=== PATIENT | male | born 1960 | race Native Hawaiian/Other Pacific Islander ===

== ENCOUNTER 2016-03-24 08:44 | Day surgery (SDC) | payer OTHER ==
[2016-03-22 15:47] VITALS: BMI 34.9
[~2016-03-24 08:44] MED LIST: LACTATED RINGERS 1,000 ML IV SCH
[2016-03-24 09:45] VITALS: RESP 16; TEMP 97.8
[2016-03-24] MEDS ORDERED: LIDOCAINE 1% 20 ML VIAL (10MG/ML) FOR IV START INTRADERMA ONE (09:46)
[2016-03-24] MEDS ORDERED: LACTATED RINGERS 1,000 ML IV SCH (10:00)
[2016-03-24] MEDS ORDERED: MIDAZOLAM 2 MG/2 ML VIAL ONE (10:12)
[2016-03-24] MEDS ORDERED: BUPIVACAINE (PF) 0.5% 30 ML VIAL ONE (10:12)
[2016-03-24] MEDS ORDERED: TRIAMCINOLONE ACETONIDE 40 MG/ML 1 ML VIAL ONE (10:12)
--- NOTE | 2016-03-24 10:45 | P.PCN ---
Date of Procedure: 03/24/16 Preoperative Diagnosis: Lumbar spondylosis without myelopathy Postoperative Diagnosis: Lumbar spondylosis without myelopathy Procedure(s) Performed: Right lumbar medial branch radio frequency ablation under fluoroscopic guidance for the medial branches L2, L3, L4, and dorsal ramus of L5 Anesthesia: local Surgeon: Cyndi Oakley Pathology: none sent Condition: stable Disposition: PACU Description of Procedure: The patient was seen in preoperative holding area consent was obtained through an trust evaluation supervisor over the phone. The patient then was brought into the procedure room and placed in prone position. Skin was prepped with ChloraPrep and draped in a sterile manner. Lidocaine 1% was used to numb the skin up at the target points that were chosen as follows: For the L5-S1 level which corresponds to the dorsal ramus of L5 the target point was at the superior medial aspect of the sacral alar on the right side of the spine on the AP view of fluoroscopy. For the L2-L3 and L4 medial branches the target points were the connection between the transverse process and the superior articular process of L 3, L4, and L5 vertebra on the right oblique view of fluoroscopy. AP, oblique, and lateral views of fluoroscopy were obtained to verify needle tip position. I used 18-gauge 150 mm in length with 10 mm curved active tip radiofrequency ablation needles for this procedure. I placed the active tips as parallel as possible to the medial branches tracks by going in a superior medial direction. Motor stimulation showed only local twitches of these needles with no radiation of twitching to the right lower extremity beneath the knee level. I then prepared solution of 3 MLS Marcaine 0.5% +40 mg of Kenalog and 1 mL of the solution was given in each needle after that I did 2 sessions of frequency ablation for 90 seconds at 80C in between these 2 sessions the needles were withdrawn by 1 or 2 mm and the bevels were turned 100. The patient tolerated procedure well. The patient has normal dorsiflexion and plantarflexion muscle strength in the right lower extremity after the procedure. And normal knee flexion muscle strength.
[2016-03-24] MEDS ORDERED: IV FLUID CONTINUATION 1,000 ML IV ONE (10:49)
--- NOTE | 2016-03-24 10:51 | FL ---
EXAMINATION TYPE: FL guided pain mgmt statistic DATE OF EXAM: 03/24/2016 10:46 AM HISTORY: Flouroscopy time 37 seconds of fluoroscopy provided. IMPRESSION: 1. Fluoroscopy time.
[2016-03-24 11:10] VITALS: BP 127/80; PULSE 75
== END 2016-03-24 11:23 | disposition home or self-care (01) ==
LOC: ORPAIN 08:44
PROVIDERS: ATTEND Anesthesiology
DX: M47.816 Spondylosis without myelopathy or radiculopathy, lumbar region (principal)
CPT/HCPCS: 64635; 64636; J2250; J3301

== ENCOUNTER → 2016-04-13 | Outpatient (CLI) | payer OTHER ==
[2016-04-13 13:00] VITALS: BP 134/88; PULSE 74; RESP 16; TEMP 97.8
--- NOTE | 2016-04-13 13:29 | P.PN ---
Progress Note - Text Patient returns for followup for chronic back pain with mild radiation to lower extremities. Patient recently underwent bilateral lumbar RFA which has provided relief for only two weeks' for the patient's back pain, and he continues to complain of right flank pain with some left flank pain as well. Patient continues on tramadol medications from PCP for pain with good relief. Patient denies adverse drug effects from medications. Today, pt denies new- onset weakness, bowel/bladder incontinence, or any other signs or symptoms of cauda equina syndrome. There are no signs of acute intoxication, and no indications of medication diversion or overuse. In addition to above, 13-point review of systems is also negative for chest pain , shortness of breath, changes in vision, changes in hearing, new onset weakness , abdominal pain, diarrhea, extreme fatigue, malaise, fever, skin changes, homicidal or suicidal ideation, or bowel or bladder incontinence. Vital Signs: Reviewed in EMR Gen: WDWN, AAOx3, NAD HEENT: NCAT, EOMI, hearing grossly normal Pulm: resp unlabored Abd: soft, NT, ND Neck: supple, trachea midline ROM in flexion lumbar spine: reduced ROM in extension lumbar spine: reduced Lumbar paravertebral tenderness: + Facet loading: ++ bilateral SI joint tenderness: + R side Straight leg raise: + SLR 25 degrees Neuro: CN II-XII grossly intact, muscle strength lower extremities PRESERVED Imaging: Reviewed in EMR Assessment: 1. lumbar DDD 2. lumbar spinal stenosis 3. lumbar spondylosis without myelopathy Plan: 1. Explanation: Opioid and psychological risk scores were reviewed. Diagnoses , prognoses, and multiple treatment options including but not limited to physical therapy, interventional therapies, adjuvant medical therapies, narcotic medication therapies, and surgery were discussed with the patient and all questions were answered to the patient's satisfaction. 2. Opioid agreement: Patient has previously signed narcotic agreement, and was orally counseled via business services sales representative in [place] to not overuse, abuse, divert, or cell medications, and to take them as prescribed by only 1 healthcare provider. The patient was also counseled to store opioid medications in a safe and preferably locked location. Patient was also counseled against driving or operating heavy equipment while using narcotic medications and also to not use alcohol or any illicit or recreational drugs. The patient verbalized understanding that lack of compliance with any of the above and likely result in failure to renew narcotic prescriptions, possible discharge from the clinic, and possible legal ramifications thereafter if indicated. 3. Counseling: The patient was counseled extensively on BODY MASS INDEX, EXERCISE. Specifically, the patient was instructed regarding the importance of weight control and exercise in the context of both chronic pain and overall health. 4. Procedures: none for now 5. Consultations: None 6. Investigations: None 7. Medications: [place] #30, tramadol #60, and lidocaine ointment to put on painful areas 8. Disposition: f/u for re-eval 8 weeks; if still little relief, consider prescribing muscle relaxant at next visit PQRS measures: 1-Patient's medications are documented in the chart. 2-Tobacco use is negative 3-Patient has not had a pneumococcal vaccine. 4-Advanced care planning discussed, patient unable to give. 5-Opioid contract signed with the patient. 6-Pain positive, follow-up visit or procedure scheduled 7-Patient's blood pressure measured and documented, and patient will follow up with the primary care due to hypertension. 8-Patient's weight was measured, and body mass index ABOVE the normal limits, and counseling was done. Patient instructed to follow up with PCP. 9-Patient WAS NOT identified as an unhealthy alcohol user.
== END | disposition home or self-care (01) ==
LOC: PNWHC3 12:23
PROVIDERS: ATTEND Anesthesiology
DX: M51.36 Other intervertebral disc degeneration, lumbar region (principal); M48.06 Spinal stenosis, lumbar region; M47.816 Spondylosis without myelopathy or radiculopathy, lumbar region; Z79.899 Other long term (current) drug therapy
CPT/HCPCS: 99211

== ENCOUNTER → 2016-06-08 | Outpatient (CLI) | payer OTHER ==
[2016-06-08 14:45] VITALS: BP 128/81; PULSE 103; RESP 18; TEMP 98.4
--- NOTE | 2016-06-08 14:57 | P.PN ---
Progress Note - Text Patient returns for followup for chronic back pain with mild radiation to lower extremities. Patient recently underwent bilateral lumbar RFA near the end of 2015 which has provided relief on the right side but not as much on the left side. Patient continues on tramadol and an occasional [place] pill/day for pain with good relief. Patient denies adverse drug effects from medications. Today , pt denies new-onset weakness, bowel/bladder incontinence, or any other signs or symptoms of cauda equina syndrome. There are no signs of acute intoxication, and no indications of medication diversion or overuse. In addition to above, 13-point review of systems is also negative for chest pain , shortness of breath, changes in vision, changes in hearing, new onset weakness , abdominal pain, diarrhea, extreme fatigue, malaise, fever, skin changes, homicidal or suicidal ideation, or bowel or bladder incontinence. Vital Signs: Reviewed in EMR Gen: WDWN, AAOx3, NAD HEENT: NCAT, EOMI, hearing grossly normal Pulm: resp unlabored Abd: soft, NT, ND Neck: supple, trachea midline ROM in flexion lumbar spine: reduced ROM in extension lumbar spine: reduced Lumbar paravertebral tenderness: + Facet loading: ++ bilateral SI joint tenderness: + R side Straight leg raise: neg Neuro: CN II-XII grossly intact, muscle strength lower extremities PRESERVED Imaging: Reviewed in EMR Assessment: 1. lumbar DDD 2. lumbar spinal stenosis 3. lumbar spondylosis without myelopathy Plan: 1. Explanation: Opioid and psychological risk scores were reviewed. Diagnoses , prognoses, and multiple treatment options including but not limited to physical therapy, interventional therapies, adjuvant medical therapies, narcotic medication therapies, and surgery were discussed with the patient and all questions were answered to the patient's satisfaction. 2. Opioid agreement: Patient has previously signed narcotic agreement, and was orally counseled via needle polisher in [place] to not overuse, abuse, divert, or cell medications, and to take them as prescribed by only 1 healthcare provider. The patient was also counseled to store opioid medications in a safe and preferably locked location. Patient was also counseled against driving or operating heavy equipment while using narcotic medications and also to not use alcohol or any illicit or recreational drugs. The patient verbalized understanding that lack of compliance with any of the above and likely result in failure to renew narcotic prescriptions, possible discharge from the clinic, and possible legal ramifications thereafter if indicated. 3. Counseling: The patient was counseled extensively on BODY MASS INDEX, EXERCISE. Specifically, the patient was instructed regarding the importance of weight control and exercise in the context of both chronic pain and overall health. 4. Procedures: repeat left lumbar RFA in July 19. Consultations: None 6. Investigations: None 7. Medications: [place] #30, tramadol #60, and lidocaine ointment to put on painful areas (patient needed auth for the ointment and did not get it at last visit) 8. Disposition: f/u for procedure in 8 weeks PQRS measures: 1-Patient's medications are documented in the chart. 2-Tobacco use is negative 3-Patient has not had a pneumococcal vaccine. 4-Advanced care planning discussed, patient unable to give. 5-Opioid contract signed with the patient. 6-Pain positive, follow-up visit or procedure scheduled 7-Patient's blood pressure measured and documented, and patient will follow up with the primary care due to hypertension. 8-Patient's weight was measured, and body mass index ABOVE the normal limits, and counseling was done. Patient instructed to follow up with PCP. 9-Patient WAS NOT identified as an unhealthy alcohol user.
== END | disposition home or self-care (01) ==
LOC: PNWHC3 14:22
PROVIDERS: ATTEND Anesthesiology
DX: M48.06 Spinal stenosis, lumbar region (principal); M51.36 Other intervertebral disc degeneration, lumbar region; M47.816 Spondylosis without myelopathy or radiculopathy, lumbar region; G89.29 Other chronic pain; Z79.899 Other long term (current) drug therapy
CPT/HCPCS: 99211

== ENCOUNTER 2016-08-26 07:55 | Day surgery (SDC) | payer OTHER ==
[2016-08-24 18:33] VITALS: BMI 29.5
[2016-08-26 08:18] VITALS: TEMP 97.7
[2016-08-26] MEDS ORDERED: LIDOCAINE 1% 20 ML VIAL (10MG/ML) FOR IV START INTRADERMA ONE (08:30)
--- NOTE | 2016-08-26 09:58 | P.PCN ---
Date of Procedure: 08/26/16 Preoperative Diagnosis: Lumbar spondylosis without myelopathy Postoperative Diagnosis: Same as above Procedure(s) Performed: Right lumbar medial branch radiofrequency ablation under fluoroscopic guidance Implants: Anesthesia: MAC, other (Local with IV sedation) Surgeon: Cyndi Oakley Pathology: none sent Condition: stable Disposition: PACU Indications for Procedure: Operative Findings: Description of Procedure: The patient was seen in the preop holding area he prefers to have the right side done today although he was scheduled for the left side to be done today. He said that he has more pain on the right side us for he wants to be done today. She was brought into the procedure 1 placed in prone position. Skin was prepped with ChloraPrep and draped in a sterile manner. Lidocaine 1% was used to numb the skin up at the target points that were chosen as follows: For the L5-S1 level which corresponds to the dorsal ramus of L5 the target point was at the superior medial aspect of the sacral ala on the right side of the spine on the AP view of fluoroscopy, and for the L2-L3 and L4 medial branches the target points were the connection between the transverse process and the superior to go process of L3,L4 and L5 vertebra respectively on the right oblique view of fluoroscopy. I used 18-gauge 100 mm in length with 10 mm curved active tip radiofrequency ablation needles for this procedure. AP, oblique, and lateral views of fluoroscopy were used to verify needle tipposition. Then motor stimulation showed only local twitches of these needles with no radiation of twitching to the right lower extremity after that I prepared a solution of 3 MLS Marcaine 0.5% +1 mL of dexamethasone 10 mg. Per mL of the solution was given in each needle before starting radio frequency ablation for 90 seconds at 80C. After the first session of ablation was done the needles were withdrawn by 1 or 2 mm and the bevels were turned 180 and then another session of ablation was started for 90 seconds at 80C. Patient tolerated procedure well.
[2016-08-26] MEDS ORDERED: IV FLUID CONTINUATION 350 ML IV ONE (10:02)
--- NOTE | 2016-08-26 10:08 | FL ---
EXAMINATION TYPE: FL guided pain mgmt statistic DATE OF EXAM: 08/26/2016 HISTORY: Flouroscopy time 15 seconds of fluoroscopy provided. IMPRESSION: 1. Fluoroscopy time.
[2016-08-26 10:32] VITALS: BP 130/85; PULSE 64; RESP 16
== END 2016-08-26 10:44 | disposition home or self-care (01) ==
LOC: ORPAIN 07:55
PROVIDERS: ATTEND Anesthesiology
DX: M47.816 Spondylosis without myelopathy or radiculopathy, lumbar region (principal); Z88.8 Allergy status to other drugs, medicaments and biological substances
CPT/HCPCS: 64635; 64636 ×3; J2250; J1100; J3010